=== PATIENT | female | born 1990 | race Caucasian/White ===

== ENCOUNTER → 2017-06-30 | Outpatient (CLI) | payer OTHER, BC ==
[2017-07-01 08:46] LABS: HBsAg Screen Negative (Negative); Hep B Core Ab, Tot Negative (Negative); Hep B Surface Ab, Qual Reactive (.)
[2017-07-01 14:40] LABS: Varicella Zoster IgG 1060 index (Immune >165)
== END ==
LOC: LAB 12:27
PROVIDERS: Nurse Practitioner Family
DX: Z11.59 Encounter for screening for other viral diseases (principal)